=== PATIENT | female | born 1975 | race Caucasian/White ===

== ENCOUNTER → 2018-06-11 | Outpatient (CLI) | payer OTHER ==
[~2018-06-11] VITALS: Ht 160 cm; Wt 91.6 kg
== END | disposition home or self-care (01) ==
LOC: SLB 12:00 → EDSTATUS 07-10 13:00
PROVIDERS: ATTEND Obstetrics & Gynecology
DX: N93.9 Abnormal uterine and vaginal bleeding, unspecified (principal); Z90.710 Acquired absence of both cervix and uterus
CPT/HCPCS: 36415; 86886; 86900; 86901